=== PATIENT | female | born 1965 | race Caucasian/White ===

== ENCOUNTER → 2017-03-14 | Outpatient (CLI) | payer OTHER ==
--- NOTE | ~2017-03-14 | CR181 ---
[facility] A Service of [facility] RADIOLOGY TEXT RESULTS PATIENT: DANIE EDMONDSON LOCATION: [facility] : 61 UNIT #: [id number] AGE: [address]: Beckie Staples SEX: F ORDER DR: [id number] [address] [address] [id number] MR#: [id number] Acc #: [id number] NAME: DANIE EDMONDSON : 1965 SEX: F STUDY DATE/TIME: 03/14/2017 14:22 UNIT: [facility] ROOM: STUDY DESCRIPTION: CR Lumbar Spine 2 or 3 Views Attending Physician: Beckie Staples A.P.R.N. Ordering Physician: Beckie Staples A.P.R.N. Primary Care Physician: Beckie Staples A.P.R.N. MEDICAL IMAGING REPORT This report is preliminary unless electronic signature is present. EXAM Lumbar spine, 3 views, 03/14/2017. HISTORY Low back pain for 2 years. No known injury. FINDINGS Three views of the lumbar spine demonstrate no fracture. The posterior vertebral body line is intact and there is no anterolisthesis or retrolisthesis. The disc spaces are normally maintained. There is dextroscoliosis of the lumbar spine centered about L3. IMPRESSION Lumbar dextroscoliosis. No acute abnormality in the lumbar spine. Dictated by... Richard Smalls M.D. THIS IS AN ELECTRONICALLY VERIFIED REPORT Richard Smalls M.D. at 03/15/2017 7:18 AM CHAN/sherron TD: 03/15/2017 02:52 JOB #: [id number] MEDICAL IMAGING REPORT Page 1 of 1
== END | disposition home or self-care (01) ==
LOC: SRAD 14:17
DX: M54.5 Low back pain (principal); M41.9 Scoliosis, unspecified
CPT/HCPCS: 72100